=== PATIENT | male | born 1950 | race Caucasian/White ===

== ENCOUNTER 2022-09-20 08:04 | Inpatient (IN) | payer SELFPAY ==
[~2022-09-20] VITALS: Ht 160 cm; Wt 66.7 kg
--- NOTE | 2022-09-20 08:15 | NUR ---
[id number] ABDOMINAL PAIN, NAUSEA, VOMITING, AND DIARRHEA SINCE LAST NIGHT
[2022-09-20] MEDS ORDERED: IV NS 0.9% 1,000 ML BAG IV ONE (08:30)
[2022-09-20] MEDS ORDERED: ONDANSETRON HCL/PF 4 MG/2 ML VIAL IVP ONE ×2 (08:30→09:30)
[2022-09-20] MEDS ORDERED: MORPHINE SULFATE INJ 2 MG/ML DISP.SYRIN IV ONE (08:30)
[2022-09-20] MEDS ORDERED: MORPHINE SULFATE INJ 4 MG/ML DISP.SYRIN ONE (08:33)
[2022-09-20] MEDS ORDERED: ONDANSETRON HCL/PF 4 MG/2 ML VIAL ONE ×3 (08:33→12:33)
[2022-09-20 08:39] LABS: BASOPHILS % (AUTO) 0.2 % (0.0-2.0); EOSINOPHILS % (AUTO) 0.1 % (0.0-6.0); HEMATOCRIT 51 % (39-51); HEMOGLOBIN 16.3 g/dL (13.5-17.5); LYMPHOCYTES # (AUTO) 2.5 K/uL (0.8-4.8); LYMPHOCYTES % (AUTO) 25.8 % (20.0-44.0); MEAN CORPUSCULAR HGB CONC 32 g/dl (31.0-36.0); MEAN CORPUSCULAR VOLUME 90 fL (80-96); MONOCYTES # (AUTO) 1.1 K/uL (0.1-1.30); MONOCYTES % (AUTO) 11.8 % (2.0-12.0); NEUTROPHILS % (AUTO) 62.1 % (43.0-81.0); PLATELET COUNT (AUTO) 205 K/uL (150-450); WHITE BLOOD COUNT (AUTO) 9.7 K/uL (4.3-11.0)
--- NOTE | 2022-09-20 08:44 | NUR ---
blood drawn and sent to lab
--- NOTE | 2022-09-20 08:44 | NUR ---
iv established. 20g LAC
--- NOTE | 2022-09-20 09:14 | NUR ---
urine sample collected and sent to lab
[2022-09-20] MEDS ORDERED: HYDROMORPHONE 1 MG/1 ML DISP.SYRIN ONE ×2 (09:25→12:34)
--- NOTE | 2022-09-20 09:25 | NUR ---
covid swab collected and sent to lab
[2022-09-20 09:28] LABS: BILIRUBIN,URINE NEGATIVE (NEGATIVE); COLOR,URINE DARK YELLOW (YELLOW); LEUKOCYTE ESTERASE ,URINE NEGATIVE (NEGATIVE); NITRITE, URINE NEGATIVE (NEGATIVE); PH,URINE 5.5 (5.0-8.0); PROTEIN,URINE 1+ mg/dl (NEGATIVE); UGLUCOSE NEGATIVE (NEGATIVE)
[2022-09-20 09:29] LABS: BACTERIA,URINE Rare /HPF (None Seen); SQUAMOUS EPITHELIAL CELL,UR Few /HPF (None Seen); WBC,URINE 0-2 /HPF (0-3)
[2022-09-20] MEDS ORDERED: HYDROMORPHONE INJ 2 MG/ML DISP.SYRIN IV ONE (09:30)
[2022-09-20 09:37] LABS: CALCIUM, SERUM 9.4 mg/dL (8.5-10.1); CREATININE 1.1 mg/dL (0.6-1.3); POTASSIUM 3.7 mmol/L (3.5-5.1)
[2022-09-20 09:43] LABS: ALBUMIN 3.6 g/dL (3.4-5.0); BILIRUBIN,DIRECT 0.9 mg/dL (0.0-0.2); BILIRUBIN,TOTAL 1.7 mg/dL (0.2-1.0)
[2022-09-20] MEDS ORDERED: ACETAMINOPHEN 325 MG TABLET PO PRN (12:30)
[2022-09-20] MEDS ORDERED: HYDROMORPHONE 1 MG/1 ML DISP.SYRIN IV ONE (12:30)
[2022-09-20] MEDS ORDERED: ONDANSETRON HCL/PF - ER 4 MG/2 ML VIAL IV ONE (12:30)
--- NOTE | 2022-09-20 12:31 | NUR ---
BED GIVEN 315-1
[2022-09-20] MEDS ORDERED: PIPERACILLIN /TAZOBACTAM 3.375 G VIAL IV ONE (12:59)
[2022-09-20] MEDS ORDERED: PANTOPRAZOLE 40 MG VIAL ONE (12:59)
--- NOTE | 2022-09-20 12:59 | NUR ---
ATTEMPTED TO GIVE REPORT, I WAS TOLD THE NURSE IS NOT AVAILABLE TO GIVE REPORT AT THE MOMENT AND TO CALL BACK IN A FEW MINUTES.
[2022-09-20] MEDS: PIPERACILLIN /TAZOBACTAM 2.25 G in IV D5W 50 ML IV SCH ×2 (13:08→21:03)
[2022-09-20] MEDS: PANTOPRAZOLE 40 MG VIAL IV SCH (13:08)
--- NOTE | 2022-09-20 13:27 | NUR ---
REPORT GIVEN TO MANFRED FREIRE FOR SANDY
--- NOTE | 2022-09-20 15:00 | NUR ---
MS MANAGER CUSTOMER NOTE RECEIVED PATIENT FROM ED C/O ABDOMINAL PAIN/NAUSEA/VOMITING.. PT A/O X4, ABLE TO MAKE NEEDS KNOWN. ABLE TO AMBULATE HOWEVER NOTED TO BE WEAK AT THIS TIME. ON RA, NO RESPIRATORY DISTRESS NOTED. IV ACCESS TO LEFT AC #20G, IV INTACT, AND PATENT. SKIN ASSESSMENT COMPLETED. PT'S SKIN IS INTACT HOWEVER PATIENT REFUSED SKIN ASSESSMENT OF PRIVATE PARTS. PT'S BELONGING VERIFIED, AND BELONGING LIST SIGNED, AND PLACED IN CHART. SAFETY MEASURES IN PLACE: BED IN LOW POSITION, SR UP X2, CALL LIGHT WITHIN REACH. WILL CONTINUE TO MONITOR PT.
[2022-09-20] MEDS: HYDROMORPHONE 1 MG/1 ML DISP.SYRIN IV PRN ×2 (15:13→19:34)
[2022-09-20 15:52] VITALS: BP 189/92
[2022-09-20] MEDS: IV NS 0.9% 1,000 ML IV PRN (16:26)
--- NOTE | 2022-09-20 18:24 | NUR ---
MS RN CLOSING NOTES PATIENT AWAKE IN BED, A/OX4.ON RA, NO RESPIRATORY DISTRESS NOTED. IV ACCESS TO LEFT AC #20G WITH IVF OF NS AT 125ML/HR, IV INTACT, AND PATENT. TO NOTIFY HOSPITALIST AND DR. HONEYCUTT OF THE MRCP AND HEPATOBILIARY HIDA RESULT IMMEDIATELY. SAFETY MEASURES IN PLACE: BED IN LOW POSITION, SR UP X2, CALL LIGHT WITHIN REACH. WILL ENDORSED TO NIGHT NURSE.
--- NOTE | 2022-09-20 19:18 | NUR ---
RN NOTES NOTIFIED DR. AHN AND ABBY NELSON NP OF THE HEPATO BILIARY HIPA RESULT. ENDORSED.
--- NOTE | 2022-09-20 19:25 | NUR ---
MS RN OPENING NOTE RECEIVED PATIENT IN BED; AWAKE, ALERT AND ORIENTED X 3-4. JAPANESE SPEAKING. DAUGHTER AT BEDSIDE. ON ROOM AIR; TOLERATING WELL. BREATHING EVEN AND NONLABORED. NOT IN ANY FORM OF RESPIRATORY OR CARDIAC DISTRESS NOTED AT THIS TIME. PATIENT COMPLAINED OF ABDOMINAL PAIN 10/10 PAIN SCALE. ABLE TO MAKE NEEDS KNOWN. WITH IV ACCESS ON LEFT ANTECUBITAL 20g; PATENT AND INTACT INFUSING WITH NS 1L RUNNING @ 125 ML/HR; FLUSHES WELL. NO INFILTRATION NOTED. SAFETY PRECAUTIONS IMPLEMENTED: CALL LIGHT AND TABLE WITHIN REACH, SIDE RAILS UP X 2, BED IN LOWEST LOCKED POSITION. WILL CONTINUE TO MONITOR THROUGHOUT SHIFT.
--- NOTE | 2022-09-20 19:34 | NUR ---
RN NOTE PATIENT COMPLAINED OF ABDOMINAL PAIN 10/10 PAIN SCALE. PRN DILAUDID INJ 1 MG GIVEN IV ORDERED. WILL CONTINUE TO MONITOR AND REASSESS PATIENT.
[2022-09-20 20:00] VITALS: BP 153/105
[2022-09-21] VITALS (8 sets, daily range): BP systolic 147–175; BP diastolic 86–99
[2022-09-21] MEDS: ONDANSETRON HCL/PF 4 MG/2 ML VIAL IVP PRN ×2 (01:23→21:29)
--- NOTE | 2022-09-21 01:23 | NUR ---
RN NOTE PATIENT FEELS NAUSEOUS AND HAD 1 EPISODE OF NONBILIOUS VOMITING. PRN ZOFRAN INJ 4 MG GIVEN IV ORDERED. WILL CONTINUE TO MONITOR AND REASSESS PATIENT.
[2022-09-21] MEDS: IV NS 0.9% 1,000 ML IV PRN ×2 (01:30→17:25)
[2022-09-21] MEDS: HYDROMORPHONE 1 MG/1 ML DISP.SYRIN IV PRN ×5 (01:58→22:31)
--- NOTE | 2022-09-21 01:58 | NUR ---
RN NOTE PATIENT COMPLAINED OF ABDOMINAL PAIN 8/10 PAIN SCALE. PRN DILAUDID INJ 1 MG GIVEN IV ORDERED. WILL CONTINUE TO MONITOR AND REASSESS PATIENT.
[2022-09-21] MEDS: PIPERACILLIN /TAZOBACTAM 2.25 G in IV D5W 50 ML IV SCH ×3 (05:07→20:14)
[2022-09-21 05:52] LABS: BASOPHILS % (AUTO) 0.1 % (0.0-2.0); HEMATOCRIT 59 % (39-51); HEMOGLOBIN 18.8 g/dL (13.5-17.5); LYMPHOCYTES # (AUTO) 0.7 K/uL (0.8-4.8); LYMPHOCYTES % (AUTO) 1.6 % (20.0-44.0); MEAN CORPUSCULAR HGB CONC 32 g/dl (31.0-36.0); MEAN CORPUSCULAR VOLUME 92 fL (80-96); MONOCYTES # (AUTO) 8.1 K/uL (0.1-1.30); MONOCYTES % (AUTO) 19.2 % (2.0-12.0); NEUTROPHILS # (AUTO) 33.5 K/uL (1.8-8.9); NEUTROPHILS % (AUTO) 79.1 % (43.0-81.0); PLATELET COUNT (AUTO) 204 K/uL (150-450)
[2022-09-21 06:18] LABS: ALBUMIN 2.9 g/dL (3.4-5.0); BILIRUBIN,DIRECT 0.2 mg/dL (0.0-0.2); BILIRUBIN,TOTAL 0.9 mg/dL (0.2-1.0); CALCIUM, SERUM 7.9 mg/dL (8.5-10.1); MAGNESIUM 1.5 mg/dL (1.8-2.4); PHOSPHORUS 3.9 mg/dL (2.5-4.9); POTASSIUM 4.1 mmol/L (3.5-5.1); TOTAL PROTEIN, SERUM 6.6 g/dL (6.4-8.2)
[2022-09-21 06:41] LABS: WHITE BLOOD COUNT (AUTO) 42.3 K/uL (4.3-11.0)
--- NOTE | 2022-09-21 06:46 | NUR ---
RN NOTE RECEIVED CRITICAL LAB: WBC - 42.3. OLIVIER MARTINO DNP DYE PADDER OPERATOR HOSPITALIST NOTIFIED; STILL AWAITING FOR REPLY.
--- NOTE | 2022-09-21 07:05 | NUR ---
MS RN CLOSING NOTE PATIENT IN BED; AWAKE, A/O X 3-4. [place]ONG KONGER SPEAKING. STABLE ON ROOM AIR. IN NO ACUTE DISTRESS. NO C/O PAIN OR DISCOMFORT AT THIS TIME. WITH IV ACCESS ON LEFT ANTECUBITAL 20g; PATENT AND INTACT INFUSING WITH NS 1L RUNNING @ 125 ML/HR; FLUSHES WELL. NO INFILTRATION NOTED. SAFETY PRECAUTIONS MAINTAINED: CALL LIGHT AND TABLE WITHIN REACH, SIDE RAILS UP X 2, BED IN LOWEST LOCKED POSITION. ENDORSED TO MORNING SHIFT FOR CONTINUITY OF CARE.
--- NOTE | 2022-09-21 07:12 | NUR ---
MS RN OPENING NOTES RECEIVED PATIENT AWAKE IN BED, A/Ox4, TURKISH SPEAKING, ABLE TO MAKE NEEDS KNOWN. ON ROOM AIR, NO S/S OF RESPIRATORY DISTRESS. COMPLAINED OF PAIN OF ABDOMEN. IV ACCESS LAC#20G RUNNING NS @125 ML/HR. INTACT AND PATENT. CONTINENT USES URINAL. SKIN ISSUES: ABDOMINAL WOUND SCAR. SAFETY MEASURES IN PLACE: BED LOCKED AND IN LOWEST POSITION, HOB ELEVATED, SIDE RAILS UPx2, CALL LIGHT WITHIN REACH. WILL CONTINUE TO MONITOR.
--- NOTE | 2022-09-21 07:51 | NUR ---
RN NOTES PATIENT COMPLAINED OF PAIN 8/10 OF ABDOMEN, PRN DILAUDID ADMINISTERED.
[2022-09-21] MEDS: PANTOPRAZOLE 40 MG VIAL IV SCH (08:39)
[2022-09-21 09:12] LABS: HEMATOCRIT 58 % (39-51); HEMOGLOBIN 18.5 g/dL (13.5-17.5); LYMPHOCYTES % (AUTO) 2.1 % (20.0-44.0); MEAN CORPUSCULAR HGB CONC 32 g/dl (31.0-36.0); MEAN CORPUSCULAR VOLUME 91 fL (80-96); MONOCYTES # (AUTO) 7.7 K/uL (0.1-1.30); MONOCYTES % (AUTO) 17.2 % (2.0-12.0); NEUTROPHILS # (AUTO) 36.3 K/uL (1.8-8.9); NEUTROPHILS % (AUTO) 80.7 % (43.0-81.0); PLATELET COUNT (AUTO) 206 K/uL (150-450); RED BLOOD CELL COUNT(AUTO) 6.39 MIL/uL (4.5-6.0)
[2022-09-21] MEDS ORDERED: Magnesium 1GM/D5W 100ML PREMIX 100 ML IV SCH (10:00)
[2022-09-21 12:00] LABS: LIPASE 4480 U/L (73-393)
[2022-09-21] MEDS ORDERED: LOPE2CAP PO (12:01)
[2022-09-21] MEDS ORDERED: IV NS 0.9% 1,000 ML IV ONE ×2 (13:00→17:30)
[2022-09-21] MEDS: HEPARIN SODIUM, PORCINE 5000 UNITS/1 ML VIAL SQ SCH ×2 (13:13→20:20)
[2022-09-21 14:02] LABS: BAND % (MANUAL) 5 % (0.0-5.0); BASOPHILS % (MANUAL) 0 % (0.0-2.0); EOSINOPHILS % (MANUAL) 0 % (0-4); LYMPHOCYTES % (MANUAL) 4 % (16-48); MONOCYTES % (MANUAL) 15 % (0-11.0); NEUTROPHILS % (MANUAL) 76 (42-76)
--- NOTE | 2022-09-21 16:29 | NUR ---
RECEIVED CRITICAL LAB REPORT OF LACTIC ACID 4.1. CHARGE NURSE LALI. ABBY HOFFMANN NOTIFIED.
--- NOTE | 2022-09-21 16:36 | NUR ---
RN NOTES CARE TRANSFERRED TO ALFONSO RN FOR ICU TRANSFER. REPORT GIVEN AT [facility] FOR HANDOFF.
--- NOTE | 2022-09-21 17:15 | NUR ---
RN OPENING NOTES RECEIVED PATIENT FROM 3W. ATTACHED TO BEDSIDE MONITOR. SINUS TACHYCARDIA ON THE MONITOR AT THIS TIME, HEART RATE IN THE 110S. BREATHING ROOM AIR, CURRENT SATURATION AT 93%. LEUNG CATHETER PLACED, DRAINING CLEAR YELLOW OUTPUT, IV ON LEFT AC 20 GAUGE, NEW IV ESTABLISHED ON RIGHT AC 18 GAUGE. SAFETY MEASURES IMPLEMENTED. WILL CONTINUE PLAN OF CARE AND ANTICIPATE NEEDS.
--- NOTE | 2022-09-21 17:22 | NUR ---
INFORMED PRIMARY LESLIE OF BLOOD PRESSURE OF 158/93. PER LESLIE MOHR TO GIVE NORMAL SALINE BOLUS, WILL CARRY ORDER OUT.
[2022-09-21 17:34] LABS: ABG PCO2 32.6 mmHg (35.0-45.0); ABG PH 7.343 (7.350-7.450); ABG PO2 67.6 mmHg (75.0-100.0); COHb 0.1 % (0.5-1.5); MetHb 0.7 % (0.0-1.5); O2Hb 92.5 % (94.0-97.0); SITE, ABG Left Radial; VENT MODE, BG RA 21%
--- NOTE | 2022-09-21 18:53 | NUR ---
RECEIVED VERBAL ORDER FROM DOCTOR KEIRA. ONUR TO START CLEAR LIQUID DIET. WILL CARRY ORDER OUT.
--- NOTE | 2022-09-21 19:35 | NUR ---
PT RECEIVED IN BED, AWAKE, WITH DAUGHTER AT BEDSIDE. PT IS A/O X3, SAMI SPEAKING. NO COMPLAINTS OF PAIN AT THIS TIME. SINUS TACHYCARDIA ON THE MONITOR AT THIS TIME, HEART RATE IN THE 110S. BREATHING ROOM AIR, CURRENT SATURATION AT 93%. LEUNG CATHETER PLACED, DRAINING CLEAR YELLOW OUTPUT, IV ON LEFT AC 20 GAUGE, AND ON RIGHT AC 18 GAUGE INFUSING NS AT 175 ML/HR. SAFETY MEASURES IN PLACE. HOB ELEVATED. CALL LIGHT WITHIN REACH, SIDE RAILS UP X3 WITH PADDING. WILL CONTINUE TO MONITOR THROUGHOUT THE NIGHT AND WILL CONTINUE PLAN OF CARE.
--- NOTE | 2022-09-21 21:33 | NUR ---
PT NAUSEAOUS AND IS FEELING THE URGE TO VOMIT. PRN ZOFRAN 4MG IVP GIVEN NEEDED AND ORDERED. WILL CONTINUE TO MONITOR.
[2022-09-21] MEDS ORDERED: hydrALAZINE HCL IV 20 MG VIAL IV PRN (23:37)
--- NOTE | 2022-09-21 23:45 | NUR ---
BP 175/94. ATTENDING PHYSICIAN INFORMED. ORDER FOR HYDRALAZINE 10MG Q6HPRN IVP RECEIVED. WILL CARRY OUT ORDERED.
[2022-09-22] VITALS (24 sets, daily range): BP systolic 130–167; BP diastolic 73–87
[2022-09-22] MEDS: IV NS 0.9% 1,000 ML IV PRN ×4 (01:12→23:40)
[2022-09-22] MEDS: PIPERACILLIN /TAZOBACTAM 2.25 G in IV D5W 50 ML IV SCH ×2 (04:00→12:18)
--- NOTE | 2022-09-22 04:22 | NUR ---
02SAT 87%. CHARGE NURSE INFORMED. PLACED ON 4LPM VIA NC. WILL CONTINUE TO MONITOR.
[2022-09-22 04:24] LABS: BASOPHILS # (AUTO) 0.1 K/uL (0.0-0.2); BASOPHILS % (AUTO) 0.2 % (0.0-2.0); HEMATOCRIT 46 % (39-51); LYMPHOCYTES # (AUTO) 0.8 K/uL (0.8-4.8); LYMPHOCYTES % (AUTO) 2.3 % (20.0-44.0); MEAN CORPUSCULAR HGB CONC 33 g/dl (31.0-36.0); MEAN CORPUSCULAR VOLUME 90 fL (80-96); MONOCYTES # (AUTO) 5.2 K/uL (0.1-1.30); MONOCYTES % (AUTO) 15.3 % (2.0-12.0); NEUTROPHILS # (AUTO) 27.6 K/uL (1.8-8.9); NEUTROPHILS % (AUTO) 82.2 % (43.0-81.0); PLATELET COUNT (AUTO) 118 K/uL (150-450); RED BLOOD CELL COUNT(AUTO) 5.09 MIL/uL (4.5-6.0)
[2022-09-22 04:33] LABS: WHITE BLOOD COUNT (AUTO) 33.6 K/uL (4.3-11.0)
[2022-09-22 04:39] LABS: CALCIUM, SERUM 6.9 mg/dL (8.5-10.1); CREATININE 1.6 mg/dL (0.6-1.3); MAGNESIUM 1.6 mg/dL (1.8-2.4); PHOSPHORUS 2.4 mg/dL (2.5-4.9); POTASSIUM 4.2 mmol/L (3.5-5.1)
--- NOTE | 2022-09-22 05:54 | NUR ---
Temp 99.4. PRN Tylenol 650mg PO given as needed and as ordered. Will continue to monitor.
--- NOTE | 2022-09-22 06:00 | NUR ---
Lab result WBC 33.6. Attending physician notified.
[2022-09-22] MEDS: HYDROMORPHONE 1 MG/1 ML DISP.SYRIN IV PRN ×3 (06:27→19:27)
--- NOTE | 2022-09-22 07:01 | NUR ---
PT IN BED, ASLEEP. AROUSABLE/RESPONSIVE. PT IS A/O X3, KAZAKH SPEAKING. NO COMPLAINTS OF PAIN AT THIS TIME. SINUS TACHYCARDIA ON THE MONITOR AT THIS TIME, HEART RATE IN THE 105. BREATHING UNLABORED ON ROOM AIR, CURRENT SATURATION AT 92%. LEUNG CATHETER IN PLACE, DRAINING CLEAR YELLOW OUTPUT, IV ON RIGHT AC 18 GAUGE AND ON LEFT AC 20 GAUGE INFUSING NS AT 175 ML/HR. SAFETY MEASURES MAINTAINED. HOB ELEVATED. CALL LIGHT WITHIN REACH, SIDE RAILS UP X2. WILL ENDORSE TO NEXT NURSE ON DUTY FOR CONTINUITY OF CARE.
--- NOTE | 2022-09-22 07:05 | NUR ---
RN OPENING NOTES PATIENT IN BED, ASLEEP BUT EASILY AROUSABLE/RESPONSIVE. PT IS A/O X3, TURKMEN SPEAKING. SINUS TACHYCARDIA ON THE MONITOR AT THIS TIME. BREATHING UNLABORED ON 4 LITERS NASAL CANULA, CURRENT SATURATION GREATER THAN 90%. LEUNG CATHETER IN PLACE, DRAINING CLEAR YELLOW OUTPUT, IV ON RIGHT AC 18 GAUGE AND ON LEFT AC 20 GAUGE INFUSING NS AT 175 ML/HR. SAFETY MEASURES MAINTAINED. HOB ELEVATED. CALL LIGHT WITHIN REACH, SIDE RAILS UP X2. WILL CONTINUE PLAN OF CARE AND ANTICIPATE NEEDS.
[2022-09-22] MEDS: PANTOPRAZOLE 40 MG VIAL IV SCH (08:11)
[2022-09-22] MEDS: HEPARIN SODIUM, PORCINE 5000 UNITS/1 ML VIAL SQ SCH ×2 (08:12→20:35)
[2022-09-22] MEDS ORDERED: NEUTRA PHOS 1 POWD.PACKET PO ONE (10:00)
[2022-09-22] MEDS ORDERED: Magnesium 1GM/D5W 100ML PREMIX 100 ML IV SCH (11:00)
[2022-09-22] MEDS: ONDANSETRON HCL/PF 4 MG/2 ML VIAL IVP PRN ×2 (11:06→19:26)
--- NOTE | 2022-09-22 11:08 | NUR ---
PATIENT VOMITED SMALL AMOUNT INTO EMESIS BAG. PRN ZOFRAN ADMINISTERED IV.
--- NOTE | 2022-09-22 11:35 | NUR ---
ASSISTED PATIENT TO BEDSIDE CHAIR. PATIENT SITTING EATING LUNCH.
--- NOTE | 2022-09-22 12:00 | NUR ---
PATIENT RETURNED TO BED. HEAD OF BED RAISED TO 30 DEGREES TO PREVENT ASPIRATION.
[2022-09-22 13:22] LABS: BAND % (MANUAL) 6 % (0.0-5.0); BASOPHILS % (MANUAL) 0 % (0.0-2.0); EOSINOPHILS % (MANUAL) 0 % (0-4); LYMPHOCYTES % (MANUAL) 4 % (16-48); MONOCYTES % (MANUAL) 13 % (0-11.0); NEUTROPHILS % (MANUAL) 77 (42-76)
--- NOTE | 2022-09-22 15:37 | NUR ---
PATIENT FAMILY MEMBER SEEN BRINING IN FOOD. PROVIDED EDUCATION TO FAMILY MEMBER ON IMPORTANCE OF PATIENT ADHERING TO LIQUID DIET, AND WARNED FAMILY MEMBER NOT TO FEED PATIENT.
[2022-09-22] MEDS: ENSURE CLEAR 237 ML LIQUID (MIX BERRY) PO SCH (17:00)
--- NOTE | 2022-09-22 19:01 | NUR ---
HAND OFF REPORT GIVEN TO RODNEY FREIRE FOR CONTINUATION OF CARE.
--- NOTE | 2022-09-22 19:30 | NUR ---
PATIENT IN BED, AWAKE. NAUSEOUS AND IS IN 8/10 ABDOMINAL PAIN. PT IS A/O X3, ROMANSH SPEAKING. SINUS TACHYCARDIA ON THE MONITOR AT THIS TIME. BREATHING UNLABORED ON 4 LITERS NASAL CANULA, CURRENT SATURATION GREATER THAN 90%. LEUNG CATHETER IN PLACE, DRAINING CLEAR YELLOW OUTPUT, IV ON RIGHT AC 18 GAUGE AND ON LEFT AC 20 GAUGE INFUSING NS AT 125 ML/HR. SAFETY MEASURES INPLACE. HOB ELEVATED. CALL LIGHT WITHIN REACH, SIDE RAILS UP X3. WILL CONTINUE PLAN OF CARE.
--- NOTE | 2022-09-22 19:35 | NUR ---
PRN ZOFRAN 4MG IVP AND PRN DILAUDID 1MG IVP GIVEN FOR N/V AND 8/10 ABDOMINAL PAIN.
[2022-09-22] MEDS: PIPERACILLIN /TAZOBACTAM 3.375 G in IV D5W 100 ML IV SCH (20:27)
[2022-09-23] VITALS (20 sets, daily range): BP systolic 127–161; BP diastolic 74–85
[2022-09-23] MEDS: ONDANSETRON HCL/PF 4 MG/2 ML VIAL IVP PRN ×2 (01:40→09:59)
[2022-09-23] MEDS: HYDROMORPHONE 1 MG/1 ML DISP.SYRIN IV PRN ×2 (01:41→09:59)
[2022-09-23 04:43] LABS: BASOPHILS % (AUTO) 0.1 % (0.0-2.0); HEMATOCRIT 40 % (39-51); HEMOGLOBIN 12.9 g/dL (13.5-17.5); LYMPHOCYTES # (AUTO) 0.7 K/uL (0.8-4.8); LYMPHOCYTES % (AUTO) 3.8 % (20.0-44.0); MEAN CORPUSCULAR HGB CONC 32 g/dl (31.0-36.0); MEAN CORPUSCULAR VOLUME 91 fL (80-96); MONOCYTES # (AUTO) 2.4 K/uL (0.1-1.30); MONOCYTES % (AUTO) 12.3 % (2.0-12.0); NEUTROPHILS # (AUTO) 16.6 K/uL (1.8-8.9); NEUTROPHILS % (AUTO) 83.8 % (43.0-81.0); PLATELET COUNT (AUTO) 100 K/uL (150-450); RED BLOOD CELL COUNT(AUTO) 4.41 MIL/uL (4.5-6.0); WHITE BLOOD COUNT (AUTO) 19.8 K/uL (4.3-11.0)
[2022-09-23 05:53] LABS: CALCIUM, SERUM 6.9 mg/dL (8.5-10.1); CREATININE 1.1 mg/dL (0.6-1.3); MAGNESIUM 1.8 mg/dL (1.8-2.4); PHOSPHORUS 1.8 mg/dL (2.5-4.9); POTASSIUM 3.2 mmol/L (3.5-5.1)
--- NOTE | 2022-09-23 07:00 | NUR ---
PATIENT IN BED, ASLEEP. PT IS A/O X3, KAZAKH SPEAKING. SINUS TACHYCARDIA ON THE MONITOR AT THIS TIME. BREATHING UNLABORED ON 4 LITERS NASAL CANULA, CURRENT SATURATION GREATER THAN 90%. LEUNG CATHETER IN PLACE, DRAINING CLEAR YELLOW OUTPUT, IV ON RIGHT AC 18 GAUGE AND ON LEFT AC 20 GAUGE INFUSING NS AT 125 ML/HR. DUE MEDS GIVEN. NEEDS ATTENDED. SAFETY MEASURES MAINTAINED. HOB ELEVATED. CALL LIGHT WITHIN REACH, SIDE RAILS UP X3. WILL ENDORSE TO NEXT NURSE ON DUTY FOR CONTINUITY OF CARE.
[2022-09-23] MEDS: ENSURE CLEAR 237 ML LIQUID (MIX BERRY) PO SCH ×3 (08:09→16:43)
[2022-09-23] MEDS ORDERED: POTASSIUM CHLORIDE 20 MEQ TAB.PRT.SR PO ONE (09:00)
[2022-09-23] MEDS: PANTOPRAZOLE 40 MG/PACK PACK PO SCH (09:57)
[2022-09-23] MEDS: PIPERACILLIN /TAZOBACTAM 3.375 G in IV D5W 100 ML IV SCH ×2 (09:57→21:05)
[2022-09-23] MEDS: HEPARIN SODIUM, PORCINE 5000 UNITS/1 ML VIAL SQ SCH ×2 (09:59→21:05)
[2022-09-23] MEDS ORDERED: NEUTRA PHOS 1 POWD.PACKET PO ONE (10:00)
[2022-09-23] MEDS: IV NS 0.9% 1,000 ML IV PRN (10:29)
--- NOTE | 2022-09-23 11:01 | NUR ---
RN NOTE GAVE REPORT TO MOUNA NUNEZ, FOR CONTINUITY OF CARE.
[2022-09-23] MEDS ORDERED: FUROSEMIDE 40 MG/4 ML VIAL IV ONE (12:30)
--- NOTE | 2022-09-23 18:00 | NUR ---
RN NOTES PT BEING DOWNGRADED TO TELE. REPORT GIVEN TO JATINDER FREIRE FOR CONTINUATION OF CARE. PT IS ALERT AND ORIENTED, NO COMPLAINT OF PAIN AT THIS TIME, ALL DUE MEDICATIONS GIVEN.
--- NOTE | 2022-09-23 18:20 | NUR ---
RIGGER NOTES RECEIVED PT FROM CUSTOMER ENGAGEMENT MANAGERMOUNA NUNEZ VIA WHEELCHAIR, ASSISTED TO BED, MADE COMFORTABLE, PT ABLE TO TRANSFER FROM WHEELCHAIR TO BED, ROOM SET UP ORIENTATION PROVIDED, NO COMPLAINT OF PAIN OR ANY DISCOMFORT AT THIS TIME, ON O2 AT 6LPM VIA N/C, PT HAS LEUNG, DRAINING WELL WITH CLEAR, YELLOW URINE, ASSISTED PT TO BATHROOM, ABLE TO AMBULATE WITH SLOW AND STEADY GAIT WITH MINIMAL ASSISTANCE, CALL LIGHT WITHIN REACH.
--- NOTE | 2022-09-23 19:30 | NUR ---
MANAGER OF CREATIVE SERVICES OPENING NOTES RECEIVED PT IN BED RESTING AT THIS TIME, FAMILY AT BEDSIDE. A/O X3, FILIPINO-SPEAKING, ABLE TO MAKE NEEDS KNOWN. ON O2 5L VIA NC WITH NO SOB OR DISTRESS NOTED. DENIES PAIN AT THIS TIME. ON TELE MONITOR READING SR 91. LEUNG CATHETER INTACT DRAINING CLEAR YELLOW URINE. IV ACCESS RAC #18G SL, LAC #20G SL, INTACT, PATENT, FLUSHING WELL. ABLE AMBULATE TO RESTROOM WITH ASSIST. SAFETY PRECAUTIONS IN PLACE: BED LOCKED AND IN LOW POSITION, BED ALARM ON, SIDE RAILS UP X3, CALL LIGHT AND TRAY TABLE WITHIN REACH. WILL CONTINUE TO MONITOR AND ASSIST.
--- NOTE | 2022-09-23 21:15 | NUR ---
RN NOTE PT STABLE AT THIS TIME, ZOSYN CURRENTLY RUNNING. ENDORSED TO MOUNA SANTANA FOR CONTINUITY OF CARE.
--- NOTE | 2022-09-23 21:20 | NUR ---
PRINCIPAL DATA ARCHITECTBODY TECHNICIAN/PAINTER OF CARE NOTE RECEIVED REPORT FROM MOUNA ROBERT. PATIENT IN BED, WITH HOB ELEVATED, EYES CLOSED BUT EASY TO AROUSE AND RESPONSIVE. AFEBRILE AND NOT IN ANY FORM OF ACUTE DISTRESS. ON O2 INHALATION VIA NASAL CANNULA AT 5LPM. WITH IV ACCESS ON LAC 20G AND R AC 18G- WITH ONGOING IV ATB. ON TELE MONITORING WITH CURRENT READING OF SR 91. WITH INTACT LEUNG CATHETER, DRAINING WELL WITH YELLOW URINE OUTPUT. SAFETY MEASURES IN PLACE. KEPT BED IN LOCKED AND IN LOW POSITION. SIDE RAILS UP X2. ADVISED TO USE THE CALL LIGHT WHEN IN NEED OF ASSISTANCE.
[2022-09-24] VITALS: BP 144/77
[2022-09-24 04:00] VITALS: BP 140/71
[2022-09-24 06:16] LABS: BASOPHILS % (AUTO) 0.1 % (0.0-2.0); EOSINOPHILS % (AUTO) 0.1 % (0.0-6.0); HEMATOCRIT 41 % (39-51); HEMOGLOBIN 13.3 g/dL (13.5-17.5); LYMPHOCYTES # (AUTO) 0.7 K/uL (0.8-4.8); LYMPHOCYTES % (AUTO) 5.8 % (20.0-44.0); MEAN CORPUSCULAR HGB CONC 32 g/dl (31.0-36.0); MEAN CORPUSCULAR VOLUME 89 fL (80-96); MONOCYTES # (AUTO) 1.7 K/uL (0.1-1.30); MONOCYTES % (AUTO) 13.4 % (2.0-12.0); NEUTROPHILS # (AUTO) 10.1 K/uL (1.8-8.9); NEUTROPHILS % (AUTO) 80.6 % (43.0-81.0); PLATELET COUNT (AUTO) 138 K/uL (150-450); RED BLOOD CELL COUNT(AUTO) 4.58 MIL/uL (4.5-6.0); WHITE BLOOD COUNT (AUTO) 12.5 K/uL (4.3-11.0)
--- NOTE | 2022-09-24 06:30 | NUR ---
PRE OWNED SALES MANAGER CLOSING NOTE PATIENT IN BED, WITH HOB ELEVATED, ASLEEP BUT EASY TO AROUSE AND RESPONSIVE. AFEBRILE AND NOT IN ANY FORM OF ACUTE DISTRESS. ON O2 INHALATION VIA NASAL CANNULA AT 5LPM. WITH IV ACCESS ON LAC 20G AND R AC 18G- SL. ON TELE MONITORING WITH CURRENT READING OF SR 77. WITH INTACT LEUNG CATHETER, DRAINING WELL WITH YELLOW URINE OUTPUT, NO HEMATURIA OR SEDIMENTS NOTED. MEDICATED ORDERED. CONTINUOUS ON IV ATB, MONITORED FOR ANY ADVERSE REACTION. SAFETY MEASURES IN PLACE. KEPT BED IN LOCKED AND IN LOW POSITION. SIDE RAILS UP X2. ADVISED TO USE THE CALL LIGHT WHEN IN NEED OF ASSISTANCE. CONSTANT VISUAL CHECK DONE TO ENSURE SAFETY. ALL NURSING NEEDS ATTENDED. ENDORSED TO INCOMING SHIFT FOR CONTINUITY OF CARE.
[2022-09-24 06:34] LABS: CALCIUM, SERUM 7.5 mg/dL (8.5-10.1); CREATININE 0.9 mg/dL (0.6-1.3); PHOSPHORUS 1.7 mg/dL (2.5-4.9)
--- NOTE | 2022-09-24 06:53 | NUR ---
SPOOL MAKER NOTE RECEIVED A CALL FROM LAB INFORMING THAT PATIENT'S POTASSIUM LEVEL IS 2.6. ENDORSED TO INCOMING SHIFT AND WILL NOTIFY MD.
[2022-09-24 06:54] LABS: POTASSIUM 2.6 mmol/L (3.5-5.1)
[2022-09-24 07:00] VITALS: BP 142/77
--- NOTE | 2022-09-24 07:45 | NUR ---
PLASMA TABLE OPERATOR OPENING NOTE (DAY SHIFT) RECEIVED PT IN BED RESTING AT THIS TIME. A/O X 3, HEBREW-SPEAKING, ABLE TO MAKE NEEDS KNOWN. ON O2 5L VIA NC WITH NO SOB OR DISTRESS NOTED. DENIES PAIN AT THIS TIME. ON TELE MONITOR READING SR IN 70s BPM RANGE. LEUNG CATHETER INTACT DRAINING CLEAR YELLOW URINE. IV ACCESS TO RIGHT AC #18G S AND LEFT AC #20G SL, INTACT, PATENT, FLUSHING WELL. ABLE TO AMBULATE TO RESTROOM WITH ASSIST. SAFETY PRECAUTIONS IN PLACE: BED LOCKED AND IN LOW POSITION, BED ALARM ON, SIDE RAILS UP X 3, CALL LIGHT AND TRAY TABLE WITHIN REACH. WILL CONTINUE TO MONITOR AND CARE FOR PATIENT PER HOSPITALIST PROVIDER'S POC.
[2022-09-24] MEDS: PIPERACILLIN /TAZOBACTAM 3.375 G in IV D5W 100 ML IV SCH ×2 (08:19→20:39)
[2022-09-24] MEDS: ENSURE CLEAR 237 ML LIQUID (MIX BERRY) PO SCH ×3 (08:19→17:46)
[2022-09-24] MEDS: PANTOPRAZOLE 40 MG/PACK PACK PO SCH (08:27)
[2022-09-24] MEDS: HEPARIN SODIUM, PORCINE 5000 UNITS/1 ML VIAL SQ SCH ×2 (08:28→20:42)
[2022-09-24] MEDS ORDERED: POTASSIUM CHLORIDE 20 MEQ POWDER PACKET PO ONE (11:00)
[2022-09-24] MEDS ORDERED: NEUTRA PHOS 1 POWD.PACKET PO ONE (11:00)
[2022-09-24] MEDS ORDERED: Magnesium 1GM/D5W 100ML PREMIX 100 ML IV SCH (11:00)
[2022-09-24 12:00] VITALS: BP 136/73
--- NOTE | 2022-09-24 13:00 | NUR ---
ADMINISTRATIVE ASST UPDATE TRANSFER to MED/SURG NOTE Patient 's telemetry monitoring discontinued and transferred to med/surg unit status.
[2022-09-24 16:00] VITALS: BP 133/66
--- NOTE | 2022-09-24 18:51 | NUR ---
MS RN CLOSING NOTE (DAY SHIFT) PATIENT IN BED, WITH HOB ELEVATED, ASLEEP BUT EASY TO AROUSE AND RESPONSIVE. AFEBRILE AND NOT IN ANY FORM OF ACUTE DISTRESS. ON O2 INHALATION VIA NASAL CANNULA AT 4 LPM. WITH IV ACCESS ON LAC 20G SL. VOIDED X 4 AND BM X 2 SINCE LEUNG CATHETER REMOVED AT 13:00 HOURS. CONTINUOUS ON IV ATB, MONITORED FOR ANY ADVERSE REACTION. SAFETY MEASURES IN PLACE. KEPT BED IN LOCKED AND IN LOW POSITION. SIDE RAILS UP X2. ADVISED TO USE THE CALL LIGHT WHEN IN NEED OF ASSISTANCE. CONSTANT VISUAL CHECK DONE TO ENSURE SAFETY. ALL MEDICATIONS GIVEN ORDERED. PATINET ABLE TO GET UP OOB TO BATHROOM WITH ASSIST. FALL PRECAUTIONS MAINTAINED. WILL ENDORSE TO OFFICE CLERK ROUTINE RNCASANDRA, FOR SANDY.
--- NOTE | 2022-09-24 19:30 | NUR ---
MS RN NOTES RECEIVED LYING ON BED,ON RIGHT SIDE POSITION,BREATHING REGULAR,NOT IN ANY FORM OF DISTRESS.SALINE LOCK LEFT AC INTACT AND PATENT,O2 IN USED AT 2L/NC TO KEEP O2 SAT ABOVE 90%.DENIES ABDOMINAL PAIN AT THE MOMENT.CALL LIGHT IN REACH,NEEDS ANTICIPATED.
[2022-09-24 20:00] VITALS: BP 133/81
[2022-09-25 05:53] LABS: BASOPHILS % (AUTO) 0.1 % (0.0-2.0); EOSINOPHILS % (AUTO) 0.3 % (0.0-6.0); HEMATOCRIT 40 % (39-51); HEMOGLOBIN 13.1 g/dL (13.5-17.5); MEAN CORPUSCULAR HGB CONC 33 g/dl (31.0-36.0); MEAN CORPUSCULAR VOLUME 89 fL (80-96); MONOCYTES % (AUTO) 17.8 % (2.0-12.0); NEUTROPHILS # (AUTO) 8.1 K/uL (1.8-8.9); NEUTROPHILS % (AUTO) 72.8 % (43.0-81.0); PLATELET COUNT (AUTO) 169 K/uL (150-450); RED BLOOD CELL COUNT(AUTO) 4.49 MIL/uL (4.5-6.0); WHITE BLOOD COUNT (AUTO) 11.1 K/uL (4.3-11.0)
[2022-09-25 06:12] LABS: CALCIUM, SERUM 7.7 mg/dL (8.5-10.1); CREATININE 0.8 mg/dL (0.6-1.3); PHOSPHORUS 1.7 mg/dL (2.5-4.9)
--- NOTE | 2022-09-25 06:31 | NUR ---
MS RN NOTES N CHANGE IN STATUS,FAIRLY RESTED AT NIGHT,IV ABX ADMINISTERED,NO CCMPLAINTS OF PAIN.CALL LIGHT IN REACH,NEEDS ATTENDED,
[2022-09-25 06:45] LABS: POTASSIUM 2.7 mmol/L (3.5-5.1)
[2022-09-25] MEDS ORDERED: POTASSIUM CHLORIDE 10 MEQ/50 ML PREMIXED IVPB FOR PERIPHERAL LINE IV ONE (07:00)
[2022-09-25] MEDS: POTASSIUM CL. PREMIX PERIPHER. 50 ML IV SCH ×4 (07:46→11:02)
--- NOTE | 2022-09-25 07:57 | NUR ---
TRUCK ENGINE TECHNICIAN Opening note Patient in bed, asleep, aroused, response to voice and touch. A fib. No s/s of distress. On O2 4L NC. IV access Left AC#20g SL, ATB running. Safety measure in place, bed low, locked, side rail up x2, call light at reach, fall precaution. Continue to monitor patient.
[2022-09-25 08:00] VITALS: BP 129/64
[2022-09-25] MEDS ORDERED: K PHOS NEUTRAL 250 MG TABLET PO ONE (08:00)
[2022-09-25] MEDS: PANTOPRAZOLE 40 MG/PACK PACK PO SCH (08:41)
[2022-09-25] MEDS: HEPARIN SODIUM, PORCINE 5000 UNITS/1 ML VIAL SQ SCH ×2 (08:42→20:28)
[2022-09-25] MEDS: ENSURE CLEAR 237 ML LIQUID (MIX BERRY) PO SCH ×3 (08:43→17:21)
[2022-09-25] MEDS: PIPERACILLIN /TAZOBACTAM 3.375 G in IV D5W 100 ML IV SCH ×3 (08:47→20:34)
--- NOTE | 2022-09-25 10:00 | NUR ---
LABORER HOISTING Note Weighed patient on chair scale.
[2022-09-25] MEDS ORDERED: LEVO500T90 PO (11:23)
[2022-09-25] MEDS ORDERED: PANT40TA2 PO (11:23)
[2022-09-25] MEDS ORDERED: POTASSIUM CHLORIDE 20 MEQ TAB.PRT.SR PO ONE (11:30)
[2022-09-25 14:41] LABS: BAND % (MANUAL) 2 % (0.0-5.0); LYMPHOCYTES % (MANUAL) 8 % (16-48); MONOCYTES % (MANUAL) 19 % (0-11.0)
[2022-09-25 14:42] LABS: METAMYELOCYTES % 1 % (0-0); MYELOCYTES % 2 % (0-0); NEUTROPHILS % (MANUAL) 68 (42-76)
[2022-09-25 16:00] VITALS: BP 134/68
[2022-09-25 16:50] LABS: CALCIUM, SERUM 7.8 mg/dL (8.5-10.1); CREATININE 0.9 mg/dL (0.6-1.3); POTASSIUM 3.3 mmol/L (3.5-5.1)
--- NOTE | 2022-09-25 18:54 | NUR ---
SAP DEVELOPER Closing Note Patient in bed, awake, fm at bedside, response to voice and touch. English speaking. No s/s of distress/SOB. On O2 2L NC. IV access Left AC#20g SL, Right forearm #22 running ATB. Safety measure in place, bed low, locked, side rail up x2, call light at reach, fall precaution. Endorse to the next shift nurse to continue monitoring patient.
--- NOTE | 2022-09-25 19:25 | NUR ---
MS RN OPENING NOTE RECEIVED PATIENT FROM AM NURSE; PATIENT AWAKE IN BED, WITH FAMILY AT BEDSIDE; ABLE TO MAKE NEEDS KNOWN; [place] SPEAKING; STABLE ON 2LPM OXYGEN VIA NASAL CANNULA, BREATHING EVENLY AND NO S/S DISTRESS NOTED; WITH IV ACCESS AT LAC G#20 SALINE LOCK, RFA G#22 RUNNING WITH ZOSYN; ENCOURAGED VERBALIZATION OF NEEDS; SAFETY MEASURES IMPLEMENTED, BED LOCKED IN LOWEST POSITION, SIDE RAILS UP X 2, CALL LIGHT AND TABLE WITHIN REACH; WILL CONTINUE TO MONITOR THROUGHOUT SHIFT
[2022-09-25 20:00] VITALS: BP 127/64
[2022-09-26] MEDS: PIPERACILLIN /TAZOBACTAM 3.375 G in IV D5W 100 ML IV SCH (04:50)
[2022-09-26 06:40] LABS: CALCIUM, SERUM 7.7 mg/dL (8.5-10.1); CREATININE 0.8 mg/dL (0.6-1.3); PHOSPHORUS 2.3 mg/dL (2.5-4.9)
--- NOTE | 2022-09-26 06:57 | NUR ---
MS RN CLOSING NOTE PATIENT RESTING IN BED; ABLE TO MAKE NEEDS KNOWN; ICELANDIC SPEAKING; STABLE ON 2LPM OXYGEN VIA NASAL CANNULA, BREATHING EVENLY AND NO S/S DISTRESS NOTED; WITH IV ACCESS AT LAC G#20 SALINE LOCK, RFA G#22 RUNNING WITH ZOSYN CURRENTLY; ADMINISTERED MEDICATIONS PRESCRIBED; PATIENT'S NEEDS ATTENDED; MONITORED PATIENT ACCORDINGLY; SAFETY MEASURES IMPLEMENTED, BED LOCKED IN LOWEST POSITION, SIDE RAILS UP X 2, CALL LIGHT AND TABLE WITHIN REACH; WILL ENDORSE TO AM NURSE FOR SANDY.
[2022-09-26 07:04] LABS: POTASSIUM 2.7 mmol/L (3.5-5.1)
--- NOTE | 2022-09-26 07:49 | NUR ---
HIGH RAW SUGAR BOILER Opening Note Received patient sitting at bedside, able to make needs known, Yakut speaking, on O2 2L via NC. IV access LAC #20G SL, RFA #22G running ATB. Text doctor Rosemary pt's potassium 2.7. Safety measure in placed, low bed, locked, siderails up x2, call light at reach. Will continue to monitor pt.
[2022-09-26 08:15] VITALS: BP 124/71
[2022-09-26] MEDS: PANTOPRAZOLE 40 MG/PACK PACK PO SCH (08:15)
[2022-09-26] MEDS: HEPARIN SODIUM, PORCINE 5000 UNITS/1 ML VIAL SQ SCH (08:17)
[2022-09-26] MEDS: ENSURE CLEAR 237 ML LIQUID (MIX BERRY) PO SCH ×2 (08:18→11:46)
[2022-09-26] MEDS ORDERED: POTASSIUM CHLORIDE 10 MEQ TABLET.SA PO ONE (10:00)
[2022-09-26] MEDS: POTASSIUM CL. PREMIX PERIPHER. 50 ML IV SCH ×2 (10:08→11:08)
[2022-09-26] MEDS: POTASSIUM CHLORIDE 20 MEQ TAB.PRT.SR PO SCH ×3 (10:44→12:50)
--- NOTE | 2022-09-26 10:45 | NUR ---
RISK ADJUSTMENT SPECIALIST Note Received order of potassium for patient. Pharmacy provided medication in divided doses. Administered med to patient.
[2022-09-26] MEDS ORDERED: NEUTRA PHOS 1 POWD.PACKET PO ONE (11:00)
[2022-09-26] MEDS ORDERED: FUROSEMIDE 40 MG/4 ML VIAL IV ONE (12:30)
[2022-09-26] MEDS ORDERED: POTA20TA83 PO (12:38)
[2022-09-26] MEDS ORDERED: POTASSIUM CHLORIDE 20 MEQ POWDER PACKET PO SCH (13:00)
--- NOTE | 2022-09-26 15:58 | NUR ---
DISABILITY ATTORNEY Discharge Note Received order for discharge. Patient is A/O x4, able to make needs known. Stable on O2 2L portable, via NC. Patient denied pain/discomfort, no SOB/distress noted. Discharge instruction given, patient verbalized understanding. All belongs accounted for, belonging sheet signed. IV access removed, catheter tip intact. Pressure dressing applied. Exit care folder given to patient. Patient left in stable condition with his daughter via private car.
== END 2022-09-26 14:45 | disposition home or self-care (01) | DRG 438 ==
LOC: ER 08:30 → MED 12:37 → TELE 09-21 12:01 → ICU 09-21 16:46 → TELE 09-23 18:33 → MED 09-25 08:53
PROVIDERS: ADMIT Nurse Practitioner Acute Care; ATTEND Nurse Practitioner Acute Care
DX: K85.90 Acute pancreatitis without necrosis or infection, unspecified (principal); N17.0 Acute kidney failure with tubular necrosis; D68.59 Other primary thrombophilia; E87.20 Acidosis, unspecified; R18.8 Other ascites; R74.01 Elevation of levels of liver transaminase levels; K43.9 Ventral hernia without obstruction or gangrene; K66.8 Other specified disorders of peritoneum; D35.02 Benign neoplasm of left adrenal gland; Z20.822 Contact with and (suspected) exposure to COVID-19; N40.0 Benign prostatic hyperplasia without lower urinary tract symptoms; E86.1 Hypovolemia; Z90.49 Acquired absence of other specified parts of digestive tract; E66.01 Morbid (severe) obesity due to excess calories; Z68.26 Body mass index [BMI] 26.0-26.9, adult; D72.829 Elevated white blood cell count, unspecified; E87.70 Fluid overload, unspecified; E87.6 Hypokalemia; R73.03 Prediabetes; K82.8 Other specified diseases of gallbladder; Z98.890 Other specified postprocedural states; K80.20 Calculus of gallbladder without cholecystitis without obstruction
CPT/HCPCS: 36415; 36600; 71045-TC; 74181-TC; 76705-TC; 78226; 80048-TC; 80061-TC; 80076-TC; 81001; 82803-TC; 83605-TC; 83690-TC; 83735-TC; 84100-TC; 85025-TC; 85730-TC; 87040-TC; 87081-TC; 94799-TC; 97112-TC; 97116-TC; 97530-TC; A4223; A9537; C9113; C9803; G0378; J0360; J1170; J1644; J1940; J2270; J2405; J2543; J3475; J3480; J7030; J7040; J7050; J7060